=== PATIENT | female | born 1960 | race Caucasian/White ===

== ENCOUNTER → 2017-07-21 | Outpatient (REF) | payer OTHER ==
[2017-07-21 12:03] LABS: CREATININE FOR GFR 0.57 MG/DL (0.55-1.30); GLOMERULAR FILTRATION RATE > 60.0 (>51)
[2017-07-21 12:03] LABS: BLOOD UREA NITROGEN 10 MG/DL (7-18)
== END ==
LOC: M LABDRAW1 10:06
DX: M79.622 Pain in left upper arm (principal)

== ENCOUNTER → 2017-12-01 | Outpatient (CLI) | payer OTHER ==
[~2017-12-01] MED LIST: CONRAY-43 43% 50ML VIAL (Q9960) As Ordered; PROHANCE 279.3MG/ML 5ML VIAL (A9576) As Ordered
== END ==
LOC: M RADPRO 06:43
DX: M19.012 Primary osteoarthritis, left shoulder (principal); M75.80 Other shoulder lesions, unspecified shoulder; M25.512 Pain in left shoulder
CPT/HCPCS: 23350

== ENCOUNTER → 2022-05-30 | Outpatient (CLI) | payer BC, OTHER ==
[2022-05-30 15:23] LABS: BASO # 0.1 10^3/uL (0.0-0.2); BASO % 0.8 % (0.0-1.0); EOS # 0.2 10^3/uL (0.0-0.5); EOS % 2.1 % (0.0-3.0); HEMATOCRIT 45.6 % (36.0-47.0); HEMOGLOBIN 14.5 g/dl (12.0-15.5); LYMPH # 2.7 10^3/uL (1.5-5.0); LYMPH % 31.5 % (24.0-44.0); MEAN CORPUSCULAR HEMOGLOBIN 30.7 pg (27.0-33.0); MEAN CORPUSCULAR HGB CONC 31.8 g/dl (32.0-36.5); MEAN CORPUSCULAR VOLUME 96.4 fl (80.0-96.0); MONO # 0.9 10^3/uL (0.0-0.8); MONO % 10.5 % (2.0-8.0); NEUTROPHILS # 4.6 10^3/uL (1.5-8.5); NEUTROPHILS % 54.2 % (36.0-66.0); PLATELET COUNT, AUTOMATED 432 10^3/uL (150-450); RED BLOOD COUNT 4.73 10^6/uL (4.00-5.40); WHITE BLOOD COUNT 8.6 10^3/uL (4.0-10.0)
[2022-05-30 15:43] LABS: IRON (FE) 69 UG/DL (50-170); PERCENT SATURATION 22.6 % (13.2-45.0); TOTAL IRON BINDING CAPACITY 305 UG/DL (250-425)
[2022-05-30 15:48] LABS: FERRITIN 273.1 NG/ML (7.3-270.7); THYROID STIMULATING HORMONE 0.929 uIU/ML (0.55-4.78); THYROXINE (T4) 11.4 UG/DL (4.5-10.9)
[2022-05-30 15:49] LABS: FOLLICLE STIMULATING HORMONE 36.6 mIU/ML; LUTEINIZING HORMONE 31.1 mIU/ML
[2022-05-30 15:50] LABS: FOLATE > 24.0 NG/ML (>5.4); FREE THYROXINE INDEX 3.9 % (1.3-4.8); T UPTAKE 34.2 % (22.5-37.0); VITAMIN B12 LEVEL 1184 PG/ML (211-911)
== END ==
LOC: M LAB 14:07
PROVIDERS: ATTEND Nurse Practitioner Family
DX: L65.9 Nonscarring hair loss, unspecified (principal)

== ENCOUNTER → 2022-06-10 | Outpatient (REF) | payer BC, OTHER | LOC: M LAB REF 15:39 | PROVIDERS: ATTEND Surgery | DX: L72.11 Pilar cyst (principal) ==

== ENCOUNTER → 2023-05-15 | Outpatient (REF) | payer BC, OTHER | LOC: M SFHCPLAZ 10:27 | PROVIDERS: ATTEND Nurse Practitioner Family | DX: L66.1 Lichen planopilaris (principal) ==

== ENCOUNTER → 2023-11-15 | Outpatient (REF) | LOC: M PLAIMG 09:43 | PROVIDERS: ATTEND Internal Medicine | DX: M47.896 Other spondylosis, lumbar region (principal); M47.812 Spondylosis without myelopathy or radiculopathy, cervical region ==

== ENCOUNTER → 2024-07-09 | Outpatient (REF) | payer BC, OTHER | LOC: M SFHCDERM 18:27 | PROVIDERS: ATTEND Nurse Practitioner Family | DX: L85.8 Other specified epidermal thickening (principal); L98.499 Non-pressure chronic ulcer of skin of other sites with unspecified severity ==